=== PATIENT | female | born 1960 | race Caucasian/White ===

== ENCOUNTER 2016-06-22 04:23 | Emergency (ER) | payer OTHER ==
[~2016-06-22 04:23] MED LIST: BACLOFEN10 MG PO; CELEBREX200 MG PO; NEURONTIN600 MG PO; PRILOSEC20 M1 PO; ROXICODONE30 MG PO; VALIUM5 MG PO
== END 2016-06-22 06:31 | disposition home or self-care (01) ==
LOC: ER 04:23
DX: R07.89 Other chest pain (principal); M94.0 Chondrocostal junction syndrome [Tietze]; F17.210 Nicotine dependence, cigarettes, uncomplicated; Z90.89 Acquired absence of other organs; Z90.49 Acquired absence of other specified parts of digestive tract; Z79.899 Other long term (current) drug therapy; Z91.041 Radiographic dye allergy status; Z88.6 Allergy status to analgesic agent
CPT/HCPCS: 36415; 96374; 96375